=== PATIENT | female | born 1980 | race Caucasian/White ===

== ENCOUNTER 2017-01-03 00:30 | Inpatient (IN) | payer MEDICAID ==
[~2017-01-03] VITALS: Ht 160 cm; Wt 106.1 kg
[2017-01-03] MEDS ORDERED: OXYTOCIN/NORMAL SALINE 1,000 ML IV SCH ×2 (01:36→16:48)
[2017-01-03] MEDS ORDERED: LR 1,000 ML IV SCH (01:36)
[2017-01-03] MEDS ORDERED: NALBUPHINE HCL 10 MG/ML AMP IVP PRN (01:45)
[2017-01-03] MEDS ORDERED: TERBUTALINE SULFATE 1 MG/ML VIAL SUBCUT ONE (01:45)
[2017-01-03] MEDS ORDERED: DINOPROSTONE 10 MG SUPP VG ONE (01:45)
[2017-01-03 01:53] LABS: BASOPHILS % (AUTO) 0.2 % (0.0-2.0); EOSINOPHILS # (AUTO) 0.1 K/uL (0.0-0.4); EOSINOPHILS % (AUTO) 0.6 % (0.0-4.0); HEMATOCRIT 34.5 % (36-48); HEMOGLOBIN 11.3 g/dL (12.0-16.0); LYMPHOCYTES # (AUTO) 1.9 K/uL (1.0-5.5); MEAN CORPUSCULAR HEMOGLOBIN 28 pg (27-31); MEAN CORPUSCULAR HGB CONC 33 % (32-36); MEAN CORPUSCULAR VOLUME 85 fL (79.0-98.0); MONOCYTES # (AUTO) 0.7 K/uL (0.0-1.0); MONOCYTES % (AUTO) 6.3 % (1.7-9.3); NEUTROPHILS # (AUTO) 8.4 K/uL (1.8-7.7); NEUTROPHILS % (AUTO) 75.9 % (40.0-70.0); PLATELET COUNT (AUTO) 246 K/uL (130-430); RED BLOOD CELL COUNT(AUTO) 4.08 MIL/uL (4.2-6.2); RED CELL DISTRIBUTION WIDTH 14.9 % (9.0-15.0); WHITE BLOOD COUNT (AUTO) 11.1 K/uL (4.8-10.8)
[2017-01-03] MEDS ORDERED: OXYTOCIN/NORMAL SALINE 1,000 ML IV ONE ×2 (02:03→16:48)
[2017-01-03 04:09] VITALS: BP_SYST 143
[2017-01-03] MEDS ORDERED: FENT2mCg/mL-ROPIVA0.2%/NS EPID 150 ML EP ONE (11:27)
[2017-01-03] MEDS ORDERED: LR 500 ML IV ONE (12:08)
[2017-01-03] MEDS ORDERED: FENT2mCg/mL-ROPIVA0.2%/NS EPID 150 ML EP SCH (12:15)
[2017-01-03] MEDS ORDERED: ePHEDrine sulfate 50 MG/ML VIAL IVP PRN (12:15)
[2017-01-03] MEDS ORDERED: DERMOPLAST SPRAY TP PRN (17:00)
[2017-01-03] MEDS ORDERED: OXYCODONE/ACETAMINOPHEN 5-325 TABLET PO PRN ×2 (17:00)
[2017-01-03] MEDS ORDERED: ANUSOL 1 EA SUPP.RECT (PREPARATION H) RC PRN (17:00)
[2017-01-03] MEDS ORDERED: RHO(D) IMMUNE GLOBULIN/MALTOSE 1500 UNITS/1.3 ML (WINHRO) IM PRN (17:00)
[2017-01-03] MEDS ORDERED: LANOLIN 7 GM OINT. TP PRN (17:00)
[2017-01-03] MEDS ORDERED: MEASLES,MUMPS&RUBELLA VACC/PF 12500 UNIT/0.5 ML VIAL SUBQ PRN (17:00)
[2017-01-03] MEDS ORDERED: METHYLERGONOVINE MALEATE 0.2 MG TABLET PO PRN (17:00)
[2017-01-03] MEDS ORDERED: HYDROCORTISONE 0.5%, 28.35 GM TOPICAL CREAM TP PRN (17:00)
[2017-01-03] MEDS ORDERED: GLYCERIN/WITCH HAZEL (TUCKS PADS) TP PRN (17:00)
[2017-01-03] MEDS: IBUPROFEN 600 MG TABLET PO SCH ×2 (18:41→23:50)
[2017-01-03] MEDS ORDERED: TEMAZEPAM 15 MG CAPSULE PO PRN (21:00)
[2017-01-04] MEDS: IBUPROFEN 600 MG TABLET PO SCH ×3 (06:39→17:46)
[2017-01-04] MEDS ORDERED: MINERAL OIL 30 ML UDC PO ONE (10:44)
== END 2017-01-04 20:30 | disposition home or self-care (01) | DRG 560 ==
LOC: SPU 00:30
PROVIDERS: ADMIT Specialist; ATTEND Specialist
PROC: 10E0XZZ Delivery of Products of Conception, External Approach (ICD-10-PCS; principal; 2017-01-03)
PROC: 3E0S3CZ (ICD-10-PCS; 2017-01-03)
PROC: 00HU33Z Insertion of Infusion Device into Spinal Canal, Percutaneous Approach (ICD-10-PCS; 2017-01-03)
DX: O80 Encounter for full-term uncomplicated delivery (principal); Z37.0 Single live birth; Z3A.39 39 weeks gestation of pregnancy
CPT/HCPCS: 36415; 81002-TC; 85018-TC; 85025; 86592; 86886; 86900; 86901; J2590; J3010; J7120